=== PATIENT | female | born 1995 | race Caucasian/White ===

== ENCOUNTER 2020-12-22 14:20 | Emergency (ER) | payer OTHER ==
[~2020-12-22] VITALS: Ht 152.4 cm; Wt 78.5 kg
[2020-12-22 21:43] LABS: BASO % 0.4 % (0.0-1.0); EOS # 0.1 10^3/uL (0.0-0.5); EOS % 1.2 % (0.0-3.0); HEMATOCRIT 42.4 % (36.0-47.0); HEMOGLOBIN 13.6 g/dl (12.0-15.5); LYMPH # 2.7 10^3/uL (1.5-5.0); LYMPH % 26.1 % (24.0-44.0); MEAN CORPUSCULAR HEMOGLOBIN 27.3 pg (27.0-33.0); MEAN CORPUSCULAR HGB CONC 32.1 g/dl (32.0-36.5); MEAN CORPUSCULAR VOLUME 85.1 fl (80.0-96.0); MONO # 0.6 10^3/uL (0.0-0.8); MONO % 5.4 % (2.0-8.0); NEUTROPHILS % 66.7 % (36.0-66.0); PLATELET COUNT, AUTOMATED 431 10^3/uL (150-450); RED BLOOD COUNT 4.98 10^6/uL (4.00-5.40); WHITE BLOOD COUNT 10.4 10^3/uL (4.0-10.0)
[2020-12-22 21:56] LABS: ALBUMIN 4.2 GM/DL (3.2-5.2); ALT/SGPT 19 U/L (12-78); BILIRUBIN,DIRECT 0.1 MG/DL (0.0-0.2); BILIRUBIN,TOTAL 0.4 MG/DL (0.2-1.0); BLOOD UREA NITROGEN 8 MG/DL (7-18); CALCIUM LEVEL 9.2 MG/DL (8.5-10.1); CARBON DIOXIDE LEVEL 30 MEQ/L (21-32); CHLORIDE LEVEL 103 MEQ/L (98-107); CREATININE FOR GFR 0.62 MG/DL (0.55-1.30); GLOMERULAR FILTRATION RATE > 60.0 (>60); GLUCOSE, FASTING 107 MG/DL (70-100); LIPASE 62 U/L (73-393); POTASSIUM SERUM 4.1 MEQ/L (3.5-5.1); SODIUM LEVEL 139 MEQ/L (136-145); TOTAL PROTEIN 8.1 GM/DL (6.4-8.2)
[2020-12-22 22:03] LABS: HCG, SERUM QUALITATIVE NEGATIVE (NEGATIVE)
[2020-12-23] MEDS ORDERED: ACETAMINOPHEN 500 MG TAB PO ONE (06:20)
--- OUTSIDE RECORDS SUMMARY | 2020-12-23 07:11 | CCD ---
Author Author [facility] Organization [facility] Address Unknown Phone Unavailable Care Team Providers Care Computer Aided Design Drafter Name Role Phone Potter M Candida CAREER SERVICES COORDINATOR Unavailable Unavailable Potter, M Candida CAREER SERVICES COORDINATOR Unavailable Unavailable Potter, M Candida CAREER SERVICES COORDINATOR Unavailable Unavailable Potter, M Candida CAREER SERVICES COORDINATOR Unavailable Unavailable Potter, M Candida CAREER SERVICES COORDINATOR Unavailable Unavailable Potter, M Candida CAREER SERVICES COORDINATOR Unavailable Unavailable Potter, M Candida CAREER SERVICES COORDINATOR Unavailable Unavailable Potter, M Candida CAREER SERVICES COORDINATOR Unavailable Unavailable Potter, M Candida CAREER SERVICES COORDINATOR Unavailable Unavailable Potter, M Candida CAREER SERVICES COORDINATOR Unavailable Unavailable Potter, M Candida CAREER SERVICES COORDINATOR Unavailable Unavailable Potter, M Candida CAREER SERVICES COORDINATOR Unavailable Unavailable Potter, M Candida CAREER SERVICES COORDINATOR Unavailable Unavailable Potter, M Candida CAREER SERVICES COORDINATOR Unavailable Unavailable Potter, M Candida CAREER SERVICES COORDINATOR Unavailable Unavailable Potter, M Candida CAREER SERVICES COORDINATOR Unavailable Unavailable Potter, M Candida CAREER SERVICES COORDINATOR Unavailable Unavailable Potter, M Candida CAREER SERVICES COORDINATOR Unavailable Unavailable Potter, M Candida CAREER SERVICES COORDINATOR Unavailable Unavailable Potter, M Candida CAREER SERVICES COORDINATOR Unavailable Unavailable Potter, M Candida CAREER SERVICES COORDINATOR Unavailable Unavailable Potter, M Candida CAREER SERVICES COORDINATOR Unavailable Unavailable Potter, M Candida CAREER SERVICES COORDINATOR Unavailable Unavailable Potter, M Candida CAREER SERVICES COORDINATOR Unavailable Unavailable Potter, M Candida CAREER SERVICES COORDINATOR Unavailable Unavailable Potter, M Candida CAREER SERVICES COORDINATOR Unavailable Unavailable Potter, M Candida CAREER SERVICES COORDINATOR Unavailable Unavailable Potter, M Candida CAREER SERVICES COORDINATOR Unavailable Unavailable Potter, M Candida CAREER SERVICES COORDINATOR Unavailable Unavailable Potter, M Candida CAREER SERVICES COORDINATOR Unavailable Unavailable Potter, M Candida CAREER SERVICES COORDINATOR Unavailable Unavailable Potter, M Candida CAREER SERVICES COORDINATOR Unavailable Unavailable Potter, M Candida CAREER SERVICES COORDINATOR Unavailable Unavailable Potter, M Candida CAREER SERVICES COORDINATOR Unavailable Unavailable Potter, M Candida CAREER SERVICES COORDINATOR Unavailable Unavailable Potter, M Candida CAREER SERVICES COORDINATOR Unavailable Unavailable Potter, M Candida CAREER SERVICES COORDINATOR Unavailable Unavailable Potter, M Candida CAREER SERVICES COORDINATOR Unavailable Unavailable Potter, M Candida CAREER SERVICES COORDINATOR Unavailable Unavailable Potter, M Candida CAREER SERVICES COORDINATOR Unavailable Unavailable Potter, M Candida CAREER SERVICES COORDINATOR Unavailable Unavailable Potter, M Candida CAREER SERVICES COORDINATOR Unavailable Unavailable Potter, M Candida CAREER SERVICES COORDINATOR Unavailable Unavailable Potter, M Candida CAREER SERVICES COORDINATOR Unavailable Unavailable Potter, M Candida CAREER SERVICES COORDINATOR Unavailable Unavailable Potter, M Candida CAREER SERVICES COORDINATOR Unavailable Unavailable Potter, M Candida CAREER SERVICES COORDINATOR Unavailable Unavailable Potter, M Candida CAREER SERVICES COORDINATOR Unavailable Unavailable Potter, M Candida CAREER SERVICES COORDINATOR Unavailable Unavailable Potter, M Candida CAREER SERVICES COORDINATOR Unavailable Unavailable Potter, M Candida CAREER SERVICES COORDINATOR Unavailable Unavailable Potter, M Candida CAREER SERVICES COORDINATOR Unavailable Unavailable Potter, M Candida CAREER SERVICES COORDINATOR Unavailable Unavailable Potter, M Candida CAREER SERVICES COORDINATOR Unavailable Unavailable Potter, M Candida CAREER SERVICES COORDINATOR Unavailable Unavailable Potter, M Candida CAREER SERVICES COORDINATOR Unavailable Unavailable Potter, M Candida CAREER SERVICES COORDINATOR Unavailable Unavailable Potter, M Candida CAREER SERVICES COORDINATOR Unavailable Unavailable CARRASCO, W KAISER PA Unavailable Unavailable CARRASCO, W KAISER PA Unavailable Unavailable CARRASCO, W KAISER PA Unavailable Unavailable CARRASCO, W KAISER PA Unavailable Unavailable CARRASCO, W KAISER PA Unavailable Unavailable CARRASCO, W KAISER PA Unavailable Unavailable CARRASCO, W KAISER PA Unavailable Unavailable CARRASCO, W KAISER PA Unavailable Unavailable CARRASCO, W KAISER PA Unavailable Unavailable CARRASCO, W KAISER PA Unavailable Unavailable CARRASCO, W KAISER PA Unavailable Unavailable CARRASCO, W KAISER PA Unavailable Unavailable CARRASCO, W KAISER PA Unavailable Unavailable CARRASCO, W KAISER PA Unavailable Unavailable CARRASCO, W KAISER PA Unavailable Unavailable CARRASCO, W KAISER PA Unavailable Unavailable CARRASCO, W KAISER PA Unavailable Unavailable CARRASCO, W KAISER PA Unavailable Unavailable CARRASCO, W KAISER PA Unavailable Unavailable CARRASCO, W KAISER PA Unavailable Unavailable CARRASCO, W KAISER PA Unavailable Unavailable CARRASCO, W KAISER PA Unavailable Unavailable CARRASCO, W KAISER PA Unavailable Unavailable CARRASCO, W KAISER PA Unavailable Unavailable CARRASCO, W KAISER PA Unavailable Unavailable CARRASCO, W KAISER PA Unavailable Unavailable CARRASCO, W KAISER PA Unavailable Unavailable CARRASCO, W KAISER PA Unavailable Unavailable CARRASCO, W KAISER PA Unavailable Unavailable CARRASCO, W KAISER PA Unavailable Unavailable CARRASCO, W KAISER PA Unavailable Unavailable CARRASCO, W KAISER PA Unavailable Unavailable CARRASCO, W KAISER PA Unavailable Unavailable CARRASCO, W KAISER PA Unavailable Unavailable CARRASCO, W KAISER PA Unavailable Unavailable CARRASCO, W KAISER PA Unavailable Unavailable CARRASCO, W KAISER PA Unavailable Unavailable CARRASCO, W KAISER PA Unavailable Unavailable CARRASCO, W KAISER PA Unavailable Unavailable CARRASCO, W KAISER PA Unavailable Unavailable CARRASCO, W KAISER PA Unavailable Unavailable CARRASCO, W KAISER PA Unavailable Unavailable CARRASCO, W KAISER PA Unavailable Unavailable CARRASCO, W KAISER PA Unavailable Unavailable Re-disclosure Warning The records that you are about to access may contain information from federally-assisted alcohol or drug abuse programs. If such information is present, then the following federally mandated warning applies: This information has been disclosed to you from records protected by federal confidentiality rules (42 CFR part 2). The federal rules prohibit you from making any further disclosure of this information unless further disclosure is expressly permitted by the written consent of the person to whom it pertains or as otherwise permitted by 42 CFR part 2. A general authorization for the release of medical or other information is NOT sufficient for this purpose. The Federal rules restrict any use of the information to criminally investigate or prosecute any alcohol or drug abuse patient.The records that you are about to access may contain highly sensitive health information, the redisclosure of which is protected by Article 27-F of the [facility] Public Health law. If you continue you may have access to information: Regarding HIV / AIDS; Provided by facilities licensed or operated by the [facility] Office of Mental Health; or Provided by the [facility] Office for People With Developmental Disabilities. If such information is present, then the following [facility] mandated warning applies: This information has been disclosed to you from confidential records which are protected by state law. State law prohibits you from making any further disclosure of this information without the specific written consent of the person to whom it pertains, or as otherwise permitted by law. Any unauthorized further disclosure in violation of state law may result in a fine or group home sentence or both. A general authorization for the release of medical or other information is NOT sufficient authorization for further disc losure. Family History Family Member Name Family Member Gender Family Member Status Date o f Status Description Data Source(s) Unknown Female Problem MEDENT ([facility]) Encounters Encounter Providers Location Date Indications Data Source(s ) OFFICE/OUTPATIENT VISIT, [facility] 12/22/2020Outpatient Attender: KAISER MYERS 12/22/2020 11:34:36 AM EDT [facility] ([facility]) OFFICE/OUTPATIENT VISIT, [facility] 11/07/2020Outpatient Attender: Shirley Garcia NP 11/07/2020 03:32:59 PM EDT [facility] ([facility]) OFFICE/OUTPATIENT VISIT, [facility] 06/14/2020Outpatient Attender: Gallito Garcia NP 06/14/2020 08:55:47 AM EDT CH[facility] ([facility]) Immunizations Vaccine Date Status Description Data Source(s) COVID-19 VACCINE Moderna 08/20/2020 12:00:00 AM EDT completed [facility] Vaccine Series Complete: YESThis Data wa s Submitted to [facility] Via [facility]. COVID-19 VACCINE Moderna 07/18/2020 12:00:00 AM EDT completed [facility] Vaccine Series Complete: NOThis Data was Submitted to [facility] Via [facility]. Medications Medication Brand Name Start Date Product Form Dose Route Admi nistrative Instructions Pharmacy Instructions Status Indications Reaction Description Data Source(s) Naproxen 375 MG Oral Tablet naproxen 375 mg tablet naproxen 375 mg tablet 06/14/2020 12:00:00 AM EDT 1 completed 12/22/2020 [facility] ([facility]) Wrist Brace Medium 06/14/2020 12:00:00 AM EDT 1 completed , right 12/22/2020 [facility] ([facility]) Insurance Providers Payer name Policy type / Coverage type Policy ID Covered alliance party ID Covered alliance party's relationship to badillo Policy [place] Plan Information [employer] [id number] [employer] [id number] [place] [id number] MEDICAID [facility] [id number] SP FC [id number] MEDICAID [facility] [id number] SP FC [id number] MEDICAID [facility] [id number] SP FC [id number] MEDICAID [facility] [id number] SP FC [id number] MEDICAID [facility] [id number] SP FC [id number] EXCE[employer] BCBS [id number] Chi CEP [id number] Excellus BC/BS [place] Medigap Part [id number] Family Dependent MEDICAID [id number] Carly [id number] Lifetime Benefit Melissa PHCS Commercial [id number] Family Depend ent Medicaid - EPIS [id number] Medica id [id number] [facility] [id number] Commercial Insurance [id number] ID IDENTIFICATION [id number] Other Insurance .[id number] MEDICAID PI BERENICE MONTERO [id number] SP [id number] MEDICAID [facility] [id number] SP [id number] Problems, Conditions, and Diagnoses Code Display Name Description Problem Type Effective Dates Data Source(s) R10.9 Unspecified abdominal pain Unspecified abdominal pain (R10.9) 12/22/2020 [id number] 12/22/2020 11:34:36 AM EDT [facility] ([facility]) R11.0 Nausea Nausea (R11.0) 12/22/2020 [id number] 12/22/2020 11:34:36 AM EDT [facility] ([facility]) R51.9 Headache, unspecified Headache, unspecified (R51.9) [id number] 11/07/2020 03:32:59 PM EDT - 12/22/2020 12:00:00 AM EDT CHART[facility]KER ([facility]) G56.01 Carpal tunnel syndrome, right upper limb Carpal tunnel syndrome, right upper limb (G56.01) 12/22/2020 [id number] 06/14/2020 08:55:47 AM EDT - 12/22/2020 12:00:00 AM EDT CHART[facility] ([facility]) M77.11 Lateral epicondylitis, right elbow Later al epicondylitis, right elbow (M77.11) 12/22/2020 [id number] 06/14/2020 08:55:47 AM EDT - 12/22/2020 12:00:00 AM EDT CHARTMA[facility]ER ([facility]) Surgeries/Procedures Procedure Description Date Indications Data Source(s) URINE TEST VISUAL COLOR CMPRSN METHS 021 12:00:00 AM EDT CHARTMAKER ([facility]) URNLS DIP STICK/TABLET RGNT NON-AUTO W/O MICRSCP 12/22 12:00:00 AM EDT CHARTMAKER ([facility]) SVC PRV OFFICE REG SCHEDD EVN WKEND/HOLIDAY HRS 2020 12:00:00 AM EDT CH[facility]ER ([facility]) Light compression bandage, elastic, knit gillian/woven, width greater than or equal to five inches, per yard 06/14/2020 12:00:00 AM EDT CHARTMAKER ([facility]) Results ID Date Data Source 12/22/2020 12:00:00 AM EDT [facility]MAK[facility] ([facility]) Name Value Range Interpretation Code Description Data Uyen rce(s) Supporting Document(s) Glucose [Mass/volume] in Serum or Plasma Negative Glucose: Negative 12/22/2020 CH[facility]MA[facility]ER ([facility]) ID Date Data Source 12/22/2020 12:00:00 AM EDT CHARTMAKER ([facility]) Name Value Range Interpretation Code Description Data Uyen rce(s) Supporting Document(s) Bilirubin.total [Mass/volume] in Serum or Plasma Negative Bilirubin: Negative 12/22/2020 [facility] ([facility]) ID Date Data Source [id number] 12/22/2020 12:00:00 AM EDT CHARTMAKER ([facility]) Name Value Range Interpretation Code Description Data Uyen rce(s) Supporting Document(s) Ketone Negative Ketone: Negative 021 CHARTMAKER ([facility]) ID Date Data Source 12/22/2020 12:00:00 AM EDT CHARTMAKER ([facility]) Name Value Range Interpretation Code Description Data Uyen rce(s) Supporting Document(s) Specific gravity of Urine 1.010 Specific G ravity: 1.010 12/22/2020 CHARTMAKER ([facility]) ID Date Data Source [id number] 12/22/2020 12:00:00 AM EDT CH[facility]MAKER ([facility]) Name Value Range Interpretation Code Description Data Uyen rce(s) Supporting Document(s) Hemoglobin [Presence] in Urine Negative Blood (Urine): Negative 12/22/2020 [facility] ([facility]) ID Date Data Source [id number] 12/22/2020 12:00:00 AM EDT CHARTMAKER ([facility]) Name Value Range Interpretation Code Description Data Uyen rce(s) Supporting Document(s) pH of Blood 6.0 pH: 6.0 12/22/2020 CHARTMAK ER ([facility]) ID Date Data Source 12/22/2020 12:00:00 AM EDT CHARTMAKER ([facility]) Name Value Range Interpretation Code Description Data Uyen rce(s) Supporting Document(s) Protein [Mass/volume] in Serum or Plasma Negative Protein: Negative 12/22/2020 [facility]KER ([facility]) ID Date Data Source 12/22/2020 12:00:00 AM EDT CHARTMAKER ([facility]) Name Value Range Interpretation Code Description Data Uyen rce(s) Supporting Document(s) Urobilinogen [Mass/volume] in Urine Negative Urobilinogen: Negative 12/22/2020 CH[facility]MAKER ([facility]) ID Date Data Source [id number] 12/22/2020 12:00:00 AM EDT CHARTMAKER ([facility]) Name Value Range Interpretation Code Description Data Uyen rce(s) Supporting Document(s) Nitrite [Presence] in Urine Negative Nitrite: Negative 12/22/2020 CHARTMAKER ([facility]) ID Date Data Source [id number] 12/22/2020 12:00:00 AM EDT CHARTMAKER ([facility]) Name Value Range Interpretation Code Description Data Uyen rce(s) Supporting Document(s) Leukocytes [#/volume] in Blood Negative Leuko cytes: Negative 12/22/2020 CHARTMAKER ([facility]) Procedure Social History Code Duration Value Status Description Data Source(s ) Smoking 12/22/2020 12:00:00 AM EDT Never smoker completed Never s moker [facility] ([facility]) Vital Signs ID Date Data Source UNK Name Value Range Interpretation Code Description Data Source(s) Body temperature 97.3 [degF] 97.3 [degF] CHART VITO ([facility]) Heart rate 95 /min 95 /min CHARTMAKER ([facility]) Systolic blood pressure 140 mm[Hg] 140 mm[Hg] C HARTIDKER ([facility]) Diastolic blood pressure 94 mm[Hg] 94 mm[Hg] CHARTMAKER ([facility]) Body weight 178 [lb_av] 178 [lb_av] [facility] ([facility]) Oxygen saturation in Arterial blood by Pulse oximetry 99 % 99 % [facility]ER ([facility]) Inhaled oxygen concentration 21 % 21 % [facility] ([facility]) Body height 60 [in_i] 60 [in_i] CHARTMAKER ([facility]) Body mass index (BMI) [Ratio] 34.0953378601952 kg/m2 34.5953653991101 kg/m2 CHARTMAKER ([facility])
--- OUTSIDE RECORDS SUMMARY | 2020-12-23 07:11 | CCD ---
Author Author [facility] Organization [facility] Address [address] [place], [place] [id number] Phone Care Team Providers Care Para Educator Name Role Phone KAISER CARRASCO Unavailable Allergies, Adverse Reactions, Alerts No Known Drug Allerg ies 06/14/2020 Medications * Discontinued: * TSERING AVILA * naproxen 375 mg tablet 12/22/2020 * Wrist Brace Medium , right 12/22/2020 Problems Addressed During This Encounter Nausea (R11.0) 12/22/2020 Unspecified abdominal pain (R10.9) 12/22 Resolved: Lateral epicondylitis, right elbow (M77.11) 12/22/2020 Carpal tunnel syndrome, right upper limb (G56.01) 12/22/2020 Headache, unspecified (R51.9) 12/22/2020 Results Leukocytes: Negative 12/22/2020 Nitrite: Negative 12/22/2020 Urobilinogen: Negative 12/22/2020 Protein: Negative 12/22/2020 pH: 6.0 12/22/2020 Blood (Urine): Negative 12/22/2020 Specific [place]: 1.010 12/22/2020 Ketone: Negative 12/22/2020 Bilirubin: Negative 12/22/2020 Glucose: Negative 12/22/2020 Chief Complaint Abdominal painTendernessDistentionAcute abdomenUrinalysis unrevealingHCG negativePatient will require urgent evaluation with labs and probably a CT scanAdvised urgent evaluation emergency departmentSelected [facility]ined ambulanceI contacted the hospital with a report sharp, intense pains in lower abdomen. m ild nausea. constipated Normal examEducated on supportive manage mentConcussion screening tool scanned to chart24 out of 30Follow-up with any worsening symptomsGet eye doctor for glasses DEBBIE as this is likely worsening her headache concussion Lateral epicondyles versus ulnar syndrom e in addition to carpal tunnel syndromeWe will treat with wrist splints, anti-inflammatory in Darwin wrap applied to elbowAdvised to keep arm elevatedIf symptoms fail to improve, latoya consider electromagnetic nerve study vs PTProper body ergonomics recommended right wrist pain Procedures Performed and Ordered Today * DARWIN WRAP 6" 06/14/2020 * MED SERV, WAI/WKEND/HOLIDAY 11/07/2020 * URINALYSIS NONAUTO W/O SCOPE 12/22/2020 * URINE TEST 12/22/2020 Vital signs Body Temperature: Heart Rate: BP: Height: Weight: BMI: O2 Percentage BldC Oximetry: Inhale d Oxygen Concentration: 97.3F 12/22/2020 95 beats per minute 12/22/2020 140/94 mmHg 12/22/2020 5ft 11/07/2020 178lbs 12/22/2020 34.589 11/07/2020 99% 12/22/2020 21% 12/22/2020 Immunizations Social History Smoking Status: Never smoker. 12/22/2020 Reason for Referral Functional Status Plan of Treatment Appointments [facility] ed: June 14, 9:40 AM, ANA HOLT NP Saturday, November 07, 2020, 3:20 PM, ANA HOLT NP Tuesday, December 22, 2020, 11:30 AM, KAISER MYERS Instructions: <Follow up with primary care> [facility] directly to [facility] emergency [facility].If you have any problems along the way stop and call 911.Nothing to eat or drink until evaluated <Follow up with primary care> Return if symptoms worsen Rest the affected area, use cold compresses up to every 15 minutes, elevate when possible, use compression such as an Darwin bandage but not too tight. <Follow up with primary care> Return if symptoms worsen Payers Insurance Policy Type Po licy ID Relation Subscriber Expi ration ID IDENTIFICATION Other Insurance Self VERONICA ROMANO [facility] Commercial Insurance [id number] Param ROMANO Medicaid - [employer] [id number] Param ROMANO Encounters OFFICE/OUTPATIENT SIT, EST 12/22/2020 Diagnoses Nausea Unspecified abdominal pain OFFICE/OUTPATIENT SIT, EST 11/07/2020 Diagnoses Headache, unspecified OFFICE/OUTPATIENT SIT, NEW 06/14/2020 Diagnoses Lateral epicondylitis, right elbow Carpal tunnel syndrome, right upper limb
--- NOTE | 2020-12-23 07:55 | REPVR ---
PROCEDURE INFORMATION: Exam: XR Complete Acute Abdomen Series Including Chest Exam date and time: 12/23/2020 6:29 AM Age: 25 years old Clinical indication: Other: Luq sharp pains; Additional info: Abdominal pain, luq pain, straining to have bm's TECHNIQUE: Imaging protocol: XR complete acute abdomen series, including 2 or more views of the abdomen and a single view chest. COMPARISON: No relevant prior studies available. FINDINGS: Lungs: Normal. No consolidation. Pleural spaces: Normal. No pleural effusions. No pneumothorax. Heart/Mediastinum: Normal. No cardiomegaly. Gastrointestinal tract: Normal. No bowel dilation. Intraperitoneal space: Normal. No free air. Bones/joints: Normal. No acute fracture. Soft tissues: Normal. IMPRESSION: No acute findings. Electronically signed by: Peter Brumfield On 12/23/2020 07:55:20 AM
[2020-12-23] MEDS ORDERED: NITR1CAP11 PO (08:25)
[2020-12-23] MEDS ORDERED: COLA100C5 PO (08:25)
[2020-12-23 08:47] VITALS: BP 143/82
== END 2020-12-23 08:49 | disposition home or self-care (01) ==
LOC: M ED 14:20
DX: N39.0 Urinary tract infection, site not specified (principal); K59.00 Constipation, unspecified; R10.84 Generalized abdominal pain; R31.29 Other microscopic hematuria; R30.0 Dysuria; Z87.448 Personal history of other diseases of urinary system; F41.9 Anxiety disorder, unspecified; F32.9 Major depressive disorder, single episode, unspecified

== ENCOUNTER → 2021-07-27 | Outpatient (CLI) | payer OTHER ==
[~2021-07-27] MED LIST: COLA100C5 PO; NITR1CAP11 PO
== END ==
LOC: M RAD 13:26
PROVIDERS: ATTEND Physician Assistant
DX: R06.02 Shortness of breath (principal)